=== PATIENT | female | born 1940 | race Caucasian/White ===

== ENCOUNTER 2020-07-12 22:17 | Inpatient (IN) | payer OTHER ==
[~2020-07-12] VITALS: Ht 147.3 cm; Wt 44.9 kg
[2020-07-12 22:18] VITALS: BP 153/59
[2020-07-12 23:24] LABS: HEMATOCRIT 31.6 % (37.0-47.0); HEMOGLOBIN 10.5 gm/dL (12.0-15.0); MCH 27.9 pg (26.0-34.0); MCHC 33.1 g/dL (28.0-37.0); MCV 84.2 fL (80.0-100.0); RBC 3.76 mil/uL (4.20-5.00); RDW 13.5 % (10.5-14.5); WBC 4.4 thou/uL (4.0-11.0)
[2020-07-12 23:42] LABS: CALCIUM 9.5 mg/dL (8.5-10.1); CREATININE 1.1 mg/dL (0.6-1.0); POTASSIUM 3.7 mmol/L (3.5-5.1)
[2020-07-13] MEDS ORDERED: ATORVASTATIN CA20 MG PO (02:01)
[2020-07-13] MEDS ORDERED: LISINOPRIL10 MG PO (02:02)
[2020-07-13] MEDS ORDERED: CLOPIDOGREL75 MG PO (02:02)
[2020-07-13] MEDS ORDERED: BUPROPION XL300 MG PO (02:02)
[2020-07-13] MEDS ORDERED: SINGULAIR 10 MG10 M1 PO (02:02)
[2020-07-13] MEDS ORDERED: LEVOTHYROXINE50 MCG PO (02:02)
[2020-07-13] MEDS ORDERED: FOLIC ACID1 MG PO (02:02)
[2020-07-13] MEDS ORDERED: TRAZODONE HCL50 MG PO (02:03)
[2020-07-13 12:00] VITALS: BP 155/72
[2020-07-13 13:53] VITALS: BP 155/72
[2020-07-13 14:32] VITALS: BP 145/70
[2020-07-13 19:10] VITALS: BP 168/78
--- NOTE | 2020-07-13 19:44 | NUR ---
PT RECEIVED TO RM 355 FROM THE ER ALERT AND IN NO ACUTE DISTRESS. AMBULATED UNASSISTED TO THE BATHROOM AND WALKING STEADY. BLOOD SUGAR BETTER AT DINNER. PT IS VERY PARTICULAR ABOUT THE QUALITY OF FOOD IS VERY PICKING W/ HER EATING. DID TEACHING RE IMPORTANCE OF EATING WELL TO ASSIST W/ HER HEALING AND SHE STATED SHE WOULD TRY. NO COUGH BUT DOES HAVE LOW GRADE FEVER.
[2020-07-13 20:24] VITALS: BP 158/84
[2020-07-13 23:07] LABS: GLYCOHEMOGLOBIN (HGB A1C) 9.3 % (4.8-5.6)
--- NOTE | 2020-07-14 01:37 | NUR ---
ASSESSED AT START OF SHIFT. PT A&OX4 UP WITH SBA TO THE BATHROOM. DENIES PAIN. C/O FEVER AND CHILLS. TEMP 99.9. TYLENOL GIVEN. BSG CHECKED 337 HS. INSULIN PROVIDED. NIGHT SNACKS ALSO GIVEN. FALL PREC IN PLACE AND CALL LIGHT AT REACH WILL CONT TO MONITOR.
[2020-07-14 03:34] VITALS: BP 168/78
[2020-07-14 06:23] LABS: HEMATOCRIT 34.8 % (37.0-47.0); HEMOGLOBIN 11.1 gm/dL (12.0-15.0); MCH 27.1 pg (26.0-34.0); MCHC 31.9 g/dL (28.0-37.0); MCV 84.9 fL (80.0-100.0); RBC 4.1 mil/uL (4.20-5.00); RDW 13.6 % (10.5-14.5); WBC 5.2 thou/uL (4.0-11.0)
[2020-07-14 06:45] LABS: CALCIUM 9.2 mg/dL (8.5-10.1); MAGNESIUM 1.7 mg/dL (1.8-2.4); POTASSIUM 4.8 mmol/L (3.5-5.1)
[2020-07-14 07:59] VITALS: BP 162/67
[2020-07-14] MEDS ORDERED: HUMALOG100 UNIT/1 SUBQ (08:01)
[2020-07-14] MEDS ORDERED: FREESTYLE LIBR1 EAC3 MISCELL (08:53)
[2020-07-14] MEDS ORDERED: FREESTYLE LIBR1 EAC2 MISCELL (08:53)
[2020-07-14 08:57] VITALS: BP 162/67
--- NOTE | 2020-07-14 11:17 | NUR ---
PT CARE ASSUMED AT 0700. A&Ox4. ACHS WITH LOW SLIDING SCALE ON BOARD. 12 UNITS GIVEN. COVID POS. TAKES PILLS WHOLE WITH WATER. MAGNESIUM 1.7. IV PATENT WITH NO REDNESS OR EDEMA, SALINE LOCKED. IV REMOVED. DISCAHRGE INSTRUCTOINS GIVEN. WITH NO FURTHER QUESTIONS. FALL PROTOCOL IN PLACE. CALL LIGHT IN REACH. LEAVING WITH SON TO TRANSPORT BACK TO FACILITY.
== END 2020-07-14 12:23 | DRG 637 ==
LOC: ER 22:17 → EROBS 07-13 01:21 → 3W 07-13 14:33
PROVIDERS: Emergency Medicine; Nurse Practitioner Family; ADMIT Hospitalist; ATTEND Hospitalist
DX: E10.649 Type 1 diabetes mellitus with hypoglycemia without coma (principal); U07.1 COVID-19; Z88.8 Allergy status to other drugs, medicaments and biological substances; E78.5 Hyperlipidemia, unspecified; I25.10 Atherosclerotic heart disease of native coronary artery without angina pectoris; I10 Essential (primary) hypertension; E03.9 Hypothyroidism, unspecified; F32.9 Major depressive disorder, single episode, unspecified; J45.909 Unspecified asthma, uncomplicated; Z79.899 Other long term (current) drug therapy
CPT/HCPCS: 10080

== ENCOUNTER 2020-07-16 22:07 | Inpatient (IN) | payer OTHER ==
[~2020-07-16] VITALS: Ht 157.5 cm; Wt 59.0 kg
[~2020-07-16 22:07] MED LIST: ATORVASTATIN CA20 MG PO; BUPROPION XL300 MG PO; CLOPIDOGREL75 MG PO; FOLIC ACID1 MG PO; FREESTYLE LIBR1 EAC2 MISCELL; FREESTYLE LIBR1 EAC3 MISCELL; HUMALOG100 UNIT/1 SUBQ; LEVOTHYROXINE50 MCG PO; LISINOPRIL10 MG PO; SINGULAIR 10 MG10 M1 PO; TRAZODONE HCL50 MG PO
[2020-07-16 22:27] VITALS: BP 111/42
[2020-07-16 22:51] LABS: BASOPHILS 0.1 % (0.0-2.0); HEMATOCRIT 34.4 % (37.0-47.0); HEMOGLOBIN 10.8 gm/dL (12.0-15.0); LYMPHOCYTES 16.2 % (24.0-44.0); MCH 27.3 pg (26.0-34.0); MCHC 31.5 g/dL (28.0-37.0); MCV 86.6 fL (80.0-100.0); MONOCYTES 9.5 % (1.0-8.0); POLYS 74.2 % (36.0-66.0); RBC 3.97 mil/uL (4.20-5.00); RDW 14.1 % (10.5-14.5); WBC 9.4 thou/uL (4.0-11.0)
[2020-07-16 22:52] LABS: PLATELET COUNT 326 thou/uL (150-400)
[2020-07-16 22:56] LABS: CALCIUM 10.5 mg/dL (8.5-10.1); POTASSIUM 5.6 mmol/L (3.5-5.1)
[2020-07-16 22:58] LABS: CREATININE 4.9 mg/dL (0.6-1.0)
[2020-07-16 23:50] LABS: BE(vivo) -19.3 mmol/L (-2 to +3); PO2 92.6 mmHg (80.0-100.0); sO2 95.4 % (92.0-98.0)
[2020-07-16 23:51] LABS: PCO2 19.1 mmHg (35.0-45.0); pH 7.184 (7.360-7.450)
[2020-07-17] VITALS (28 sets, daily range): BP systolic 78–143; BP diastolic 34–92
--- NOTE | 2020-07-17 02:00 | NUR ---
80 Y/O PT ADMITTED TO ICU FROM ER WITH DX OF DKA DOREEN AWAKE AND ALERT COOPERATIVE. LUNGS CLEAR. ACCUCHECK 389 INSULIN GTT STARTED AT 2 UNITS/HR I/2 NS AT 250 CC/HR SINUS RHYTHM. DENIES DISCOMFORT. ONLY REQUEST IS WATER AND PT IS NPO. WILL CONT TO MONITOR
[2020-07-17 04:35] LABS: ALBUMIN 2.7 g/dL (3.4-5.0); CALCIUM 9.7 mg/dL (8.5-10.1); MAGNESIUM 2.3 mg/dL (1.8-2.4); PHOSPHORUS 4.9 mg/dL (2.6-4.7); POTASSIUM 4.8 mmol/L (3.5-5.1)
--- NOTE | 2020-07-17 06:30 | NUR ---
PT RESTING QUIETLY. ONLY REQUEST IS ICE WATER. AFTER SEVERAL ATTEMPTS SIDHU CATH PLACED. 700 CC UO THIS SHIFT. ACCUCHECK 152 INSULIN GTT AT 1 UNIT. VSS REMAINS IN SINUS RHYTHM. PROGRESSING TOWARD GOALS
--- NOTE | 2020-07-17 07:18 | EKG ---
[address] [place] [place] [address] ELECTROCARDIOGRAM REPORT Name: MARIAJOSE RAMOS Room #: 243-P ADM IN M.R.#: [id number] Admission: 07/16/20 Attend Phys: Ted King Discharge: Date of : 44 Report #: [id number] [facility] ED Test Date: 2020-07-16 Test Time: 22:19:22 Pat Name: MARIAJOSE RAMOS Department: Room: 243 Gender: F Guest Service Representative: [email or web address] : 1940 Requested By: Larry Wisdom Order Number: [id number] MD: Severino Hernandez Measurements Intervals [place] Rate: 83 P: 82 DE: 142 QRS: -29 QRSD: 102 T: 72 QT: 388 QTc: 456 Interpretive Statements Sinus rhythm Borderline left axis deviation No previous ECG available for comparison Electronically Signed On 07-17-2020 7:17:52 AUTOBODY TECHNICIAN by Severino Hernandez [email or web address] <ELECTRONICALLY SIGNED> By: Severino Hernandez MD, [facility] 07/17/20 0717 2219 2219 Severino Hernandez MD, FACC /EPI
[2020-07-17 10:10] LABS: ALBUMIN 2.8 g/dL (3.4-5.0); CALCIUM 9.6 mg/dL (8.5-10.1); CREATININE 3.5 mg/dL (0.6-1.0); MAGNESIUM 2.2 mg/dL (1.8-2.4); PHOSPHORUS 3.9 mg/dL (2.5-4.9); POTASSIUM 5.1 mmol/L (3.5-5.1)
[2020-07-17 12:12] LABS: ALBUMIN 2.5 g/dL (3.4-5.0); MAGNESIUM 2.1 mg/dL (1.8-2.4); PHOSPHORUS 2.8 mg/dL (2.5-4.9); POTASSIUM 3.6 mmol/L (3.5-5.1)
[2020-07-17] MEDS ORDERED: LANTUS SUBQ (13:47)
[2020-07-17] MEDS ORDERED: HUMALOG100 UNIT/1 SUBQ (13:47)
[2020-07-17] MEDS ORDERED: SINGULAIR 10 MG10 M1 PO (14:17)
[2020-07-17] MEDS ORDERED: MAGNESIUM400 M1 PO (14:17)
[2020-07-17] MEDS ORDERED: FISH OIL 1,001000 M3 PO (14:18)
[2020-07-17] MEDS ORDERED: REVIA 50 MG TAB50 M1 PO (14:18)
[2020-07-17] MEDS ORDERED: SIMBRINZA 1%-0.28 ML OPHTHALMIC (14:20)
[2020-07-17] MEDS ORDERED: SIMBRINZA 1%-0.28 ML OTIC (14:20)
[2020-07-17] MEDS ORDERED: VITAMIN D21250 MC1 PO (14:22)
[2020-07-17] MEDS ORDERED: TYLENOL325 M1 PO (14:23)
[2020-07-17] MEDS ORDERED: FOLIC ACID1 MG PO (14:23)
[2020-07-17] MEDS ORDERED: LUMIGAN2.5 M1 OPHTHALMIC (14:24)
[2020-07-17 16:22] LABS: ALBUMIN 2.6 g/dL (3.4-5.0); CALCIUM 9.4 mg/dL (8.5-10.1); CREATININE 2.6 mg/dL (0.6-1.0); MAGNESIUM 2.2 mg/dL (1.8-2.4); PHOSPHORUS 2.8 mg/dL (2.6-4.7)
[2020-07-17 16:28] LABS: POTASSIUM 4.9 mmol/L (3.5-5.1)
--- NOTE | 2020-07-17 19:01 | NUR ---
patient progressing towards plan of care. insulin gtt off at 1430 today. diet initiated. spoke with son Marky (DPOA) and gave updates on patient status.
--- NOTE | 2020-07-17 21:30 | NUR ---
ASSUMED CARE OF PT. AWAKE AND ALERT. BLOOD SUGAR 59 1/2 AMP D50 GIVEN PER STANDING ORDERS. UO VIA SIDHU ADEQ. SINUS RHYTHM. DENIES DISCOMFORT POOR APPITITE. VSS WILL CONT TO MOPNITOR. PROGRESSING TOWARD GOALS
--- NOTE | 2020-07-17 21:52 | NUR ---
ENHANCED ISOLATION PRECAUTIONS SHERWIN'Elise.
--- NOTE | 2020-07-17 22:00 | NUR ---
COVID 19 ISOLATION CLEARED BY KELSY NEWBY RN PT TAKEN OUT OF ISOLATION. WILL CONBT TO MONITOR.
--- NOTE | 2020-07-17 23:15 | NUR ---
PT NOW A MED SURG TELE OVERFLOW. TX VIA BED TO CCU ROOM 201 WITH RN
--- NOTE | 2020-07-18 01:41 | NUR ---
2310: RECIEVED PATIENT FROM ICU PER BED. ORIENTED TO ROOM AND IVF RESTARTED. 2335: RECIEVED REPORT FROM PASSENGER TRAIN BRAKER. 0130: PATIENT SLEEPING WITHOUT PRESENT COMPLAINTS.
[2020-07-18 04:45] VITALS: BP 156/62
[2020-07-18 05:38] LABS: ABSOLUTE NEUTROPHILS 4.8 thou/uL (1.4-8.2); BASOPHILS 0.1 % (0.0-2.0); EOSINOPHILS 0.3 % (0.0-3.0); HEMOGLOBIN 9.5 gm/dL (12.0-15.0); LYMPHOCYTES 21.3 % (24.0-44.0); MCH 27.6 pg (26.0-34.0); MCHC 32.8 g/dL (28.0-37.0); MCV 84.1 fL (80.0-100.0); PLATELET COUNT 275 thou/uL (150-400); POLYS 71.3 % (36.0-66.0); RBC 3.45 mil/uL (4.20-5.00); RDW 13.6 % (10.5-14.5); WBC 6.7 thou/uL (4.0-11.0)
[2020-07-18 05:53] LABS: ALBUMIN 2.3 g/dL (3.4-5.0); CALCIUM 9.2 mg/dL (8.5-10.1); TOTAL BILIRUBIN 0.3 mg/dL (0.2-1.0); TOTAL PROTEIN 5.4 g/dL (6.4-8.2)
[2020-07-18 05:58] LABS: CREATININE 1.5 mg/dL (0.6-1.0)
[2020-07-18 07:30] VITALS: BP 154/66
[2020-07-18 12:00] VITALS: BP 153/69
--- NOTE | 2020-07-18 15:20 | NUR ---
PT IS AOX3, FORGETFUL AT TIMES. PT UP TO CHAIR, VSS, TOLERATING DIET WITHOUT N/V. PT WALKED IN THE [place] WITH PHYSICAL THERAPY TODAY. PT CALLS APPROPRIATELY. CALL LIGHT IN REACH, WILL CONTINUE TO MONITOR.
[2020-07-18 15:40] VITALS: BP 144/66
[2020-07-18 20:10] VITALS: BP 157/86
[2020-07-19 05:17] LABS: CALCIUM 10.1 mg/dL (8.5-10.1); CREATININE 0.8 mg/dL (0.6-1.0); POTASSIUM 3.5 mmol/L (3.5-5.1)
[2020-07-19 05:22] LABS: HEMATOCRIT 30.9 % (37.0-47.0); HEMOGLOBIN 10.2 gm/dL (12.0-15.0); MCH 27.3 pg (26.0-34.0); MCHC 32.9 g/dL (28.0-37.0); MCV 83.1 fL (80.0-100.0); RBC 3.72 mil/uL (4.20-5.00); RDW 13.5 % (10.5-14.5)
--- NOTE | 2020-07-19 05:27 | NUR ---
PATIENTS CARE WAS ASSUMED AT SHIFT CHANGE. PATIENT WAS ASSESSED AND MEDS WERE PASSED. THIS IS A MED SURG PATIENT. NO TELE MONITORING AT THIS TIME. PATIENT IS PLEASENT AND FOLLOWS DIRECTIONS. CALLS WHEN NEEDED. HER IV INFELTRATED THIS SHIFT WILL RESTART IN THE MORNING.
[2020-07-19 09:06] VITALS: BP 174/91
[2020-07-19 10:47] VITALS: BP 164/88
[2020-07-19 11:36] VITALS: BP 174/91
[2020-07-19] MEDS ORDERED: HUMALOG100 UNIT/1 SUBQ (11:38)
--- NOTE | 2020-07-19 13:54 | NUR ---
PT IS FROM [facility] DISCHARGING TODAY BACK TO FACILITY FAXED DC ORDERS/SUMMARY RECEIVED CONFIRMATION. FACILITY DOES NOT HAVE TRANSPORT SO VAN ARRANGED WITH [facility] FOR [phone]. FACILITY NOTIFIED OF DC AND TIME OF TRANSPORT. UNIT NOTIFIED AND CHART COPY PER US. RN TO CALL REPORT TO [phone].
--- NOTE | 2020-07-19 16:05 | NUR ---
Met with patient who resides at [facility]. She has a walker as needed. She tested positive for COVID at facility. Plan return to [place] today. Sp with son alerted of discharge today. he is in agreement. DC liaison planner to arrange.
--- NOTE | 2020-07-19 17:00 | NUR ---
ASSUMED CARE OF PT AT SHIFT CHANGE. ASSESSMENTS CHARTED. MEDS GIVEN PER SEP. PT A&OX4, FORGETFUL. NO C/O PAIN OR DISTRESS. PT WAS APPROPRIATE THROUGHOUT SHIFT. DISCHARGE ORDERS AND INSTRUCTIONS COMPLETE. TRANSPORTATION TO FACILITY PROVIDED BY [facility]. LANEY FIORE
== END 2020-07-19 16:45 | DRG 177 ==
LOC: ER 22:07 → EROBS 23:40 → ICU 23:40 → 2N 23:40 → ICU 07-17 01:26 → 2N 07-17 23:12
PROVIDERS: Emergency Medicine; ADMIT Hospitalist; ATTEND Hospitalist
DX: U07.1 COVID-19 (principal); E10.10 Type 1 diabetes mellitus with ketoacidosis without coma; E43 Unspecified severe protein-calorie malnutrition; N17.9 Acute kidney failure, unspecified; E78.5 Hyperlipidemia, unspecified; E55.9 Vitamin D deficiency, unspecified; N18.30 Chronic kidney disease, stage 3 unspecified; D64.9 Anemia, unspecified; I25.10 Atherosclerotic heart disease of native coronary artery without angina pectoris; E10.22 Type 1 diabetes mellitus with diabetic chronic kidney disease; E03.9 Hypothyroidism, unspecified; I12.9 Hypertensive chronic kidney disease with stage 1 through stage 4 chronic kidney disease, or unspecified chronic kidney disease; F32.9 Major depressive disorder, single episode, unspecified; J45.909 Unspecified asthma, uncomplicated; I10 Essential (primary) hypertension; Z88.8 Allergy status to other drugs, medicaments and biological substances; Z91.14 Patient's other noncompliance with medication regimen; Z68.23 Body mass index [BMI] 23.0-23.9, adult; Z86.19 Personal history of other infectious and parasitic diseases
CPT/HCPCS: 10081

== ENCOUNTER 2020-07-23 09:05 | Inpatient (IN) | payer OTHER ==
[~2020-07-23] VITALS: Ht 157.5 cm; Wt 49.5 kg
[~2020-07-23 09:05] MED LIST changes: +FISH OIL 1,001000 M3 PO; +LANTUS SUBQ; +LUMIGAN2.5 M1 OPHTHALMIC; +MAGNESIUM400 M1 PO; +REVIA 50 MG TAB50 M1 PO; +SIMBRINZA 1%-0.28 ML OPHTHALMIC; +SIMBRINZA 1%-0.28 ML OTIC; +TYLENOL325 M1 PO; +VITAMIN D21250 MC1 PO
[2020-07-23 09:06] VITALS: BP 120/37
[2020-07-23 09:36] LABS: HEMATOCRIT 31.5 % (37.0-47.0); HEMOGLOBIN 9.7 gm/dL (12.0-15.0); MCHC 30.7 g/dL (28.0-37.0); MCV 87.9 fL (80.0-100.0); PLATELET COUNT 347 thou/uL (150-400); RBC 3.58 mil/uL (4.20-5.00); RDW 14.6 % (10.5-14.5); WBC 13.9 thou/uL (4.0-11.0)
[2020-07-23 09:58] LABS: ALBUMIN 2.7 g/dL (3.4-5.0); BUN 48 mg/dL (7-18); CALCIUM 10.1 mg/dL (8.5-10.1); CHLORIDE 93 mmol/L (98-107); CREATININE 3.1 mg/dL (0.6-1.0); DIRECT BILIRUBIN 0.1 mg/dL (<0.1-0.2); LIPASE 56 U/L (73-393); MAGNESIUM 2.2 mg/dL (1.8-2.4); PHOSPHORUS 5.3 mg/dL (2.6-4.7); POTASSIUM 5.3 mmol/L (3.5-5.1); SGOT 16 U/L (15-37); SGPT 16 U/L (14-59); SODIUM 129 mmol/L (136-145); TOTAL BILIRUBIN 0.6 mg/dL (0.2-1.0); TOTAL PROTEIN 6.2 g/dL (6.4-8.2); TROPONIN-I <0.06 ng/mL (<0.06)
[2020-07-23 10:00] LABS: ANION GAP 28 mmol/L (7-16)
[2020-07-23 10:05] LABS: CO2 8 mmol/L (21-32)
[2020-07-23 10:06] LABS: GLUCOSE 717 mg/dL (74-106)
[2020-07-23 10:07] LABS: BE(vivo) -19.9 mmol/L (-2 to +3); HCO3 5.5 mmol/L (22.0-26.0); PCO2 13.7 mmHg (35.0-45.0); PO2 105.5 mmHg (80.0-100.0); pH 7.223 (7.360-7.450); sO2 97.1 % (92.0-98.0)
[2020-07-23 10:36] LABS: ABSOLUTE NEUTROPHILS 12.5 thou/uL (1.4-8.2); ANISOCYTOSIS 1+; METAMYELOCYTES 1 %
[2020-07-23] MEDS ORDERED: MAGNESIUM OXID400 M1 PO (10:37)
--- NOTE | 2020-07-23 10:38 | EKG ---
[address] [place] [address] ELECTROCARDIOGRAM REPORT Name: MARIAJOSE RAMOS Room #: [facility] M.R.#: [id number] Admission: Attend Phys: Discharge: Date of : 42 Report #: [id number] [facility] ED Test Date: 2020-07-23 Test Time: 10:06:06 Pat Name: MARIAJOSE RAMOS Department: Room: Gender: F Insurance Agent: JOSELINE : 1940 Requested By: Kevin Us Order Number: [id number] MD: Adalberto Saavedra Measurements Intervals [place] Rate: 108 P: 74 SC: 148 QRS: -26 QRSD: 96 T: 89 QT: 351 QTc: 471 Interpretive Statements Sinus tachycardia Borderline left axis deviation Anteroseptal infarct, age indeterminate Baseline wander in lead(s) V1 Compared to ECG 07/16/2020 22:19:22 Electronically Signed On 07-23-2020 10:38:28 FUEL VERIFICATION TECHNICIAN by Adalberto Saavedra [email or web address] <ELECTRONICALLY SIGNED> By: Adalberto Saavedra MD 07/23/20 1038 1006 1006 Adalberto Saavedra MD /IRIS
[2020-07-23 11:20] LABS: URINE BILIRUBIN NEGATIVE (Negative); URINE BLOOD NEGATIVE (Negative); URINE CLARITY CLEAR; URINE COLOR YELLOW; URINE GLUCOSE-RANDOM* 3+ (Negative); URINE KETONES 2+ (Negative); URINE LEUKOCYTES NEGATIVE (Negative); URINE NITRITE NEGATIVE (Negative); URINE PROTEIN (DIPSTICK) NEGATIVE (Negative); URINE SPECIFIC GRAVITY 1.015 (1.005-1.035); URINE UROBILINOGEN 0.2 E.U./dl (0.2-1.0)
[2020-07-23 14:21] LABS: ALBUMIN 2.2 g/dL (3.4-5.0); CALCIUM 9.5 mg/dL (8.5-10.1); CREATININE 3.2 mg/dL (0.6-1.0); POTASSIUM 4.6 mmol/L (3.5-5.1)
[2020-07-23 18:46] LABS: CREATININE 2.6 mg/dL (0.6-1.0)
[2020-07-23 18:48] LABS: POTASSIUM 5.6 mmol/L (3.5-5.1)
--- NOTE | 2020-07-23 20:29 | NUR ---
INSULIN DRIP REDUCED TO 1.45UNITS/HR PER DKA PROTOCOL
[2020-07-23 22:22] LABS: ALBUMIN 1.8 g/dL (3.4-5.0); CALCIUM 7.7 mg/dL (8.5-10.1); CREATININE 2.1 mg/dL (0.6-1.0); PHOSPHORUS 2.5 mg/dL (2.5-4.9)
[2020-07-23 22:23] LABS: POTASSIUM 4.6 mmol/L (3.5-5.1)
--- NOTE | 2020-07-24 03:10 | NUR ---
talked with luis, notified her of pt blood sugar at 112 and normal anion gap. per luis guaman, ok to turn insulin drip to half and reduce rate of D51/2 NS to 75. check blood sugar every 2 hours x 2
[2020-07-24 05:51] LABS: ALBUMIN 2.1 g/dL (3.4-5.0); CALCIUM 8.2 mg/dL (8.5-10.1); PHOSPHORUS 2.5 mg/dL (2.5-4.9); POTASSIUM 4.2 mmol/L (3.5-5.1)
[2020-07-24 05:55] LABS: HEMATOCRIT 26.9 % (37.0-47.0); HEMOGLOBIN 8.7 gm/dL (12.0-15.0); MCH 27.5 pg (26.0-34.0); MCHC 32.5 g/dL (28.0-37.0); MCV 84.5 fL (80.0-100.0); RBC 3.18 mil/uL (4.20-5.00); RDW 13.8 % (10.5-14.5); WBC 10.8 thou/uL (4.0-11.0)
--- NOTE | 2020-07-24 06:15 | NUR ---
TW ALICIA CUNNINGHAM NP, VERIFIED LAST BLOOD SUGAR, PER ALIRIO VARGAS TO TURN OFF D51/2NS.
[2020-07-24 07:55] VITALS: BP 138/51
--- NOTE | 2020-07-24 10:47 | NUR ---
OK TO REMOVE FROM PRECAUTIONS PER KELSY BRODERICK
[2020-07-24 15:35] VITALS: BP 138/51
[2020-07-24 16:28] VITALS: BP 156/61
--- NOTE | 2020-07-24 16:48 | NUR ---
The patient resides at [facility] and was discharged on 07-19-2020. Note patient was COVID + at that time. 80-year-old female coming from an assisted living facility with the nursing staff noted that she was kind of increasing altered today after sustaining a facial injury while walking into a door frame. They also note that she has been having issues with hypoglycemia where her sugars been reading high for more than several days and it came down to 82 with some doses of insulin, they also noted that she had foul-smelling urine of treated UTI. The patient admits she is somewhat confused does not know why she is here has no other complaint of chest pain, abdominal pain, nausea, vomiting, diarrhea does remember the incident of the fall this morning when she said she had a mechanical trip and fall into the door jam of her room. Patient has been admitted to a hospitalist for: DKA, IDDM, DOREEN, UTI, Hypothyroidism, HTN, HLD, Medical non-compliance and Hx of COVID -19 infection. Of note PCR COVID remains positive. Patients son Marky Tuttle is listed as next of kin at [phone] and left a voicemail.
--- NOTE | 2020-07-24 17:04 | NUR ---
CALLED TO NOTIFY DR. PEREZ OF PT BG READING OF 455. ORDERED TO LEAVE INSULIN GTT AT SAME RATE OF 5.9 UNIT/HR. RECEIVED ORDERS TO START D5NS @ 100ML/HR WHEN PT REACHES BG-250
[2020-07-24 19:48] VITALS: BP 135/45
[2020-07-24 20:16] LABS: ALBUMIN 2.2 g/dL (3.4-5.0); CALCIUM 9.2 mg/dL (8.5-10.1); CREATININE 1.9 mg/dL (0.6-1.0); MAGNESIUM 1.9 mg/dL (1.8-2.4); TOTAL BILIRUBIN 0.3 mg/dL (0.2-1.0)
[2020-07-24 20:22] LABS: POTASSIUM 5.2 mmol/L (3.5-5.1)
--- NOTE | 2020-07-24 23:56 | NUR ---
Spoke to Marky (son) and gave him an update on her status and condition
[2020-07-24 23:58] VITALS: BP 115/47
[2020-07-25] VITALS (7 sets, daily range): BP systolic 144–158; BP diastolic 59–73
--- NOTE | 2020-07-25 01:12 | NUR ---
Pt's BS 61. Insulin drip stopped. D5 NS still running.
[2020-07-25 01:45] LABS: ABSOLUTE NEUTROPHILS 5.4 thou/uL (1.4-8.2); BASOPHILS 0.5 % (0.0-2.0); EOSINOPHILS 0.1 % (0.0-3.0); HEMATOCRIT 27.3 % (37.0-47.0); HEMOGLOBIN 8.9 gm/dL (12.0-15.0); MCH 27.2 pg (26.0-34.0); MCHC 32.4 g/dL (28.0-37.0); MCV 84.1 fL (80.0-100.0); MONOCYTES 14.6 % (1.0-8.0); PLATELET COUNT 306 thou/uL (150-400); POLYS 61.8 % (36.0-66.0); RBC 3.25 mil/uL (4.20-5.00); RDW 14.3 % (10.5-14.5); WBC 8.7 thou/uL (4.0-11.0)
[2020-07-25 02:40] LABS: CALCIUM 8.8 mg/dL (8.5-10.1); CREATININE 1.5 mg/dL (0.6-1.0); TOTAL BILIRUBIN 0.2 mg/dL (0.2-1.0)
[2020-07-25 02:56] LABS: POTASSIUM 3.6 mmol/L (3.5-5.1)
[2020-07-25 06:54] LABS: MAGNESIUM 2.1 mg/dL (1.8-2.4); PHOSPHORUS 1.9 mg/dL (2.5-4.9)
--- NOTE | 2020-07-25 09:48 | HC ---
[facility] [place] [address] CONSULTATION Name: MARIAJOSE RAMOS Room #: 170-15 ADM IN M.R.#: [id number] Admission: 07/23/20 Attend Phys: Mansoor Bañuelos MD Discharge: Date of : 42 Report #: [id number] THIS REPORT FOR: cc: Lizzy Stevens MD, Amir R. MD Al-Mubaslat, Ahmad MD ~ DATE OF SERVICE: 07/24/2020 ENDOCRINE CONSULTATION NOTE CONSULTING PHYSICIAN: Dr. Bañuelos. REASON FOR CONSULTATION: Uncontrolled type 2 diabetes mellitus. HISTORY OF PRESENT ILLNESS: This is a 80-year-old female patient whose medical background is significant for multiple medical issues including poorly controlled insulin-dependent diabetes mellitus, renal insufficiency, CAD, hypothyroidism, depression. The patient has had multiple hospital admissions in the past due to the issue of severe hyperglycemia and other difficulties pertaining to diabetes mellitus. The patient presented from her assisted living facility accompanied by staff, who indicated that she has had wide glycemic fluctuations alternating between severe hyperglycemia and steep drops to as low as 82 with intermittent dosing of insulin. Also, there were concerns that she might be dealing with UTI. It appears that the patient has not taken insulin in some time prior to presentation. When she presented, the patient had blood glucose in excess of 700 mg, which led to the initiation of IV insulin therapy that went on for about 12 hours and was stopped at about 3:00 a.m. earlier today. The patient was rather lethargic when I interviewed her today and was unable to give details outlining the events surrounding the last few days. However, her records show that she has been treated with Humalog insulin at about 40 units with meals as well as with Lantus insulin 10 units at bedtime. She was unable to shed more light on the specifics of her blood glucose pattern over the past few days. Also, the patient is known to have hypothyroidism and is maintained on levothyroxine 50 mcg daily. She is hyperlipidemic and is maintained on atorvastatin 20 mg daily. REVIEW OF SYSTEMS: CONSTITUTIONAL: Fatigue, tiredness, but no fever, chills or body weight changes. HEENT: Negative for sore throat, sinus pain or ear drainage. PULMONARY: Negative for shortness of breath, cough or hemoptysis. [address] [address] CONSULTATION Name: MARIAJOSE RAMOS Room #: 17015 ADM IN M.R.#: [id number] Admission: 07/23/20 Attend Phys: Mansoor Bañuelos MD Discharge: Date of : 42 Report #: [id number] CARDIAC: Negative for chest pain, palpitations, syncope or presyncope. GASTROINTESTINAL: Noted for intermittent issues with abdominal discomfort, nausea, but no vomiting. NEUROLOGY: Noted for behavioral changes, confusion, but not seizure activity. Otherwise, review of systems noncontributory other than those mentioned in HPI. PAST MEDICAL HISTORY: 1. Type 1 diabetes mellitus. 2. Renal insufficiency. 3. Hyperlipidemia. 4. Coronary artery disease. 5. Hypertension. 6. Hypothyroidism. 7. Depression. 8. Asthma. 9. History of COVID-19 pneumonia. 10. Glaucoma. OUTPATIENT MEDICATIONS: Include Humalog insulin 4 units t.i.d. a.c., Lantus insulin 10 units at bedtime, magnesium oxide 400 mg daily, atorvastatin 20 mg daily, bupropion XL 300 mg daily, Plavix 75 mg daily, lisinopril 10 mg daily, levothyroxine 50 mcg daily, trazodone 50 mg at bedtime, Singulair 10 mg at bedtime, ReVia 50 mg daily, Lumigan ophthalmic drops. ALLERGIES: OMNICEF AND PROPRANOLOL. FAMILY HISTORY: Noncontributory. SOCIAL HISTORY: The patient has not used tobacco in the past, but she had issues with heavy alcohol dependence in the past. She could not confirm whether or not this issue is active at this point. PHYSICAL EXAMINATION: GENERAL: female patient who appears confused, restless, but not in pain. She appears lethargic. VITAL SIGNS: Blood pressure is 138/51 mmHg, heart rate is 111 beats per minute, respirations 20 per minute, temperature 36.7 degrees Celsius. CONSTITUTIONAL: The patient is lying supine in bed. She was attempting to get out of bed. When I saw her, she did not seem to be in pain or distress. HEENT: Anicteric sclerae. Intact extraocular motions. NECK: Supple, without JVD or thyromegaly. CHEST: Noted for moderate air entry bilaterally with coarse breath sounds, scattered rales, without wheezes or crackles. HEART: Regular rate and rhythm without murmurs or gallops. ABDOMEN: Soft, lax. No guarding. Active bowel sounds. [facility] [address] [place] [address] CONSULTATION Name: MARIAJOSE RAMOS Room #: 170-15 ADM IN M.R.#: [id number] Admission: 07/23/20 Attend Phys: Mansoor Bañuelos MD Discharge: Date of : 42 Report #: [id number] EXTREMITIES: Lower extremity exam is negative for ankle edema, skin breaks or ulcerations. NEUROLOGIC: She is confused, unable to cooperate with neurological examination. She answers some of my questions, but seems disoriented. PSYCHIATRY: Awake, but lethargic and disoriented. LABORATORY RESULTS: On arrival, the patient's blood glucose was 717 mg/dL and has come down progressively to as low as 112 mg/dL, most recently was at 423 mg/dL. Sodium 159, potassium 4.2, chloride 105, CO2 of 17, anion gap 17. This was 28 on arrival. BUN 34, creatinine 2.0, AST 16, lipase 56, total bilirubin 0.6, direct bilirubin 0.1, calcium 8.2, phosphorus 2.5, magnesium 2.2, alkaline phosphatase 87, ALT 16, total protein 6.2, albumin 2.1, EGFR 24. Lactic acid 1.1. White blood count 10.8, hemoglobin 8.7, hematocrit 26.9, platelets 332. TSH 1.386. Hemoglobin A1c 9.3%. ASSESSMENT AND PLAN: 1. Diabetic ketoacidosis. The patient presented under conditions of diabetic ketoacidosis judging by her metabolic parameters. She was initiated on IV insulin therapy, but this was stopped about 12 hours into it. The patient had been off of IV insulin therapy for several hours by the time that I have seen her. While the patient's anion gap has improved significantly since using IV insulin, it has not fully normalized yet. Given the cessation of IV insulin therapy, I elected to initiate therapy immediately with long-acting insulin in the form of Lantus insulin 8 units daily as well as providing coverage with low intensity Humalog supplemental scale. However, if she continues to have difficulties with severe hyperglycemia and/or if her anion gap anomalies persist, I would have a low threshold to resume IV insulin therapy. Maintain aggressive blood glucose monitoring. 2. Type 1 diabetes mellitus. The patient has been known to deal with brittle type 1 diabetes mellitus with high insulin sensitivity and a propensity for severe hypoglycemia including in response to minute changes in insulin dosages. Alternatively, the patient has also dealt with a fair amount of severe hyperglycemia and has tended to have uncontrolled hemoglobin A1c values for the most part over the past several months. Given that knowledge, I will place the patient on Lantus insulin 8 units daily, knowing that her average basal daily doses are in the vicinity of 10 units daily. Since the patient is not eating at the present time, I will not yet initiate scheduled Humalog coverage for meals, but will provide coverage with low intensity Humalog scale with customization to ensure that she does not receive insulin for blood glucose under 200 mg/dL to avoid hypoglycemia. Maintain blood glucose monitoring as we are now. 3. Hypothyroidism. The patient has chronic hypothyroidism and is maintained on a stable dose of levothyroxine. Her current TSH level reflects adequate control in the present dose, [place] [address] CONSULTATION Name: MARIAJOSE RAMOS Room #: 170-15 [facility] IN M.R.#: [id number] Admission: 07/23/20 Attend Phys: Mansoor Bañuelos MD Discharge: Date of : 42 Report #: [id number] I certainly appreciate this consultation by Dr. Bañuelos. <ELECTRONICALLY SIGNED> By: Ti Rome MD 07/25/20 0948 1436 1934 Ti Rome MD /nt
--- NOTE | 2020-07-25 19:32 | NUR ---
PT CARE ASSUMED AT 1400. ASSESSMENTS CHARTED. MEDICATIONS CHARTED. LAC IV. RAC IV. SINUS RHYTHM. NAHUM. PT FROM [facility]ISTED LIVING; NONCOMPLIANT WITH MEDICATION. CONFUSED. ACHS. REPLACE FLUIDS WHEN THEY REACH 250 ML. WOULD LIKE BLOOD GLUCOSE MAINTAINED OVER 100.
[2020-07-26] VITALS (7 sets, daily range): BP systolic 145–168; BP diastolic 69–93
--- NOTE | 2020-07-26 04:10 | NUR ---
CARE ASSSUMED AT 1900. PT AO X 3. MORE AWAKE AND PLEASANT. BG 56 AT BEGINNING OF SHIFT. APPLE JUICE GIVEN, BG UP TO 106. PT DENIES CHEST DISCOMFORT, NAUSEA, VOMITING. ALL ASSESSMENTS DOCUMENTED. PT MAINTAINED ON D5, NO FURTHER COMPLAINTS. WILL CONTINUE TO MONITOR
[2020-07-26 05:18] LABS: HEMATOCRIT 25.2 % (37.0-47.0); HEMOGLOBIN 8.2 gm/dL (12.0-15.0); MCH 27.5 pg (26.0-34.0); MCHC 32.6 g/dL (28.0-37.0); MCV 84.3 fL (80.0-100.0); RBC 2.99 mil/uL (4.20-5.00); WBC 5.4 thou/uL (4.0-11.0)
[2020-07-26 05:34] LABS: CALCIUM 8.3 mg/dL (8.5-10.1); POTASSIUM 3.7 mmol/L (3.5-5.1)
--- NOTE | 2020-07-26 11:30 | NUR ---
Assess due to pt with multiple admissions for DKA. Hx refusal insulin at facility but also very brittle. BG 56-188, endo following. Initially lost about 20-23 lb from past 6 months, however now wt stabilizing around 105 lb. Bedscale wt this am was 111 lb. Likes to drink glucerna shakes-ordered with meals. Assisted pt ordering from alternative menu for lunch. Low nutrition risk with appropriate nutrition interventions in place.
--- NOTE | 2020-07-26 13:46 | NUR ---
Case opened to follow for dc planning. Pt is from [facility]. Clinical updated faxed to their director Andrade. They indicate that the pt's initial covid +test was on 07-08-20 and she no longer in ISO. PT/OT evals in progress. Pt uses a rwalker at the facility. She is being treated for DKA and UTI. [facility] can accept her back at co and is allowing for HH visits per [facility] if needed at co. The pt's mental status is improving. Dc timeframe 1- 2days. Nursing has updated her son Marky. The pt will need transport back to [facility] at co unless Marky is able to take her. Referral sent to [facility]. Will follow.
--- NOTE | 2020-07-26 19:32 | NUR ---
PT IS ALERT AND ORIENTED, PLEASANT, BUT CONFUSED. PT/OT CONSULTED. PT WALKED AROUND UNIT WITH NO WALKER. PT UP TO CHAIR IN AM. PT HAD POOR APPETITE, AND ADDITIONAL SUPPLEMENTATION ADDED TO DIET. PT HAD SON AT BEDSIDE IN PM. PT UNDERSTANDS POC IS TO CONTROL BLOOD SUGAR. CONTINUE TO MONITOR BLOOD SUGAR. CONTINUE TO REMIND PT SHE HAS SIDHU IN PLACE FOR IMMOBILITY. PT IS RESTING COMFORTABLY. NO CONCERNS AT THIS TIME.
[2020-07-27 03:59] VITALS: BP 168/71
--- NOTE | 2020-07-27 05:22 | NUR ---
CARE ASSUMED 1900. PT ALERT AND ORIENTED. NO PAIN, CHEST DISCOMFORT REPORTED. EVENING BG 220, COVERED WITH 3 UNITS. NO OTHER EVENTS. ASSESSMENTS DOCUMENTED. PT REMAINS SR ON THE MONITOR. WILL CONTINUE TO FOLLOW POC.
[2020-07-27 07:20] VITALS: BP 171/76
[2020-07-27 11:45] VITALS: BP 153/89
--- NOTE | 2020-07-27 13:06 | NUR ---
SPOKE WITH PATIENT'S SON CATRACHO UPDATED ON PATIENTS CONDITION
--- NOTE | 2020-07-27 15:19 | NUR ---
PATIENT RESTING IN BED ALERT XS 2-3 PLEASANT AND COOPERATIVE WITH CARE. WAS UP IN BEDSIDE CHAIR FOR MEALS. GIVEN S/S AND SCEDULED INSULIN ORDERED AFTER BLOOD SUGAR CHECKS ORDERED. IV ABT ORDERED.
--- NOTE | 2020-07-27 15:24 | NUR ---
RIGHT FOOT X-RAY REPORT NO FRACTURE SUBLUXATION OR DISLOCATION IS PRESENT. PT INFORMED OF RESULTS.
[2020-07-27 15:30] VITALS: BP 145/61
--- NOTE | 2020-07-27 16:11 | NUR ---
Case discussed with the care team. Pt updated at bedside and pt's son/dpoa Marky via phone regarding recommendations for snf and possible ltc transition. The pt was not overly receptive and feels she can return to [facility] as she feels she is at her baseline. Pt's son Marky reports that he will discuss with the pt and she could benefit from snf stay and concideration of ltc enviornment with more support and medication mngt. The pt luba refusing her insulin. She does acknowledge having a poor po intake but likes glucerna shakes. Both in agreement to fax referrals for snf to [facility], [facility] and [facility] . Referrals faxed and called to all three facilities. [facility] is closed to admissions til Friday as they are closing their covid rehab unit and cleaning it this weekend. [facility] both evaling an may be able to accept tomorrow pending auth. Pt out of covid ISO as she is >20 from her covid+ test and no s/s. Pt's son indicates that he does have medical DPOA if needed but hopeful pt will be in agreement. Psych eval pending. Pt does appear to have stm deficits and can not recall being seen by various staff in the am. Will follow. Possible dc to SNF tomorrow vs return to the [facility] with HH.
[2020-07-27 19:44] VITALS: BP 163/91
--- NOTE | 2020-07-28 05:06 | NUR ---
REMAINS UPSET ABOUT BEING TRANSFERED TO SKILLS UNIT AND NOT GOING HOME. REASSURED TO HAVE CM TALK WITH HER THIS AM. UP TO BATHROOM WITH STANDBY ASSIST. WORKING ON GOALS AND PLAN OF CARE FOR NOC. CONTINUE TO ASSES. DENIES COMPLAINTS OF PAIN OR SHORTNESS OF AIR.
[2020-07-28 05:24] VITALS: BP 156/81
[2020-07-28 07:41] VITALS: BP 162/71
[2020-07-28 11:27] VITALS: BP 152/68
--- NOTE | 2020-07-28 13:41 | NUR ---
Psych eval noted for invocation of DPOA for hc. Son Marky alerted and he is in agreement with SNF for skilled rehab. He has spoken with the pt this am and she is in agreement but still hopes to return to her [facility] apt in a couple of weeks. Marky is undecided and notes he will f/u with the socialworker at [facility] to determine dc plan once he has reviewed her financial situation. He would like to give her another chance to continue living at [facility]. Encouragement given to discuss with the DON at [facility] to determine how they can together handle her medication refusals when it comes to her long acting insulin to avoid repeat DKA admissions. He stated his understanding. The pt is adement that she never refuses her insulin. DC equipment planner to fax snf orders and coordinate w/c van pickup time with the [facility] liason. [facility] to f/u with the pt son to get a copy of his dpoa for hc and make arrangements for any belongings and admission paperwork. Care team updated. Chart copy in progress. Nursing to call report.
[2020-07-28] MEDS ORDERED: MIRALAX17 GM PO (15:05)
[2020-07-28] MEDS ORDERED: HUMALOG100 UNIT/1 SUBQ ×2 (15:05)
[2020-07-28] MEDS ORDERED: LANTUS100 UNIT/M SUBQ (15:05)
[2020-07-28] MEDS ORDERED: COZAAR 25 MG TA25 M2 PO (15:08)
--- NOTE | 2020-07-28 16:33 | NUR ---
PT DISCHARGING TO [facility] FAXED DC ORDERS/SUMMARY TO FACILITY SPOKE WITH EDU IN ADM SHE RECEIVED ORDERS AND ARRANGED TRANSPORT BY [facility] FOR [id number] TODAY. PT'S SON NOTIFIED OF DC AND TIME OF TRANSPORT BY [facility]. UNIT NOTIFIED AND CHART COPY PER US.
--- NOTE | 2020-07-28 18:27 | NUR ---
ASSUMED CARE OF PT AT SHIFT CHANGE. ASSESSMENTS CHARTED. MEDS GIVEN PER SEP. PT A&OX4 BUT CAN BE FORGETFUL AND A BIT CONFUSED. NO C/O PAIN. DISCHARGE ORDERS AND INSTRUCTIONS COMPLETE. IV AND TELE DC'D. PT TRANPORTED TO FACILITY VIA [facility]AN.
== END 2020-07-28 18:31 | DRG 871 ==
LOC: ER 09:05 → EROBS 11:29 → 2N 11:29 → EROBS 07-24 05:08 → 2N 07-25 13:47
PROVIDERS: Emergency Medicine; Internal Medicine; Nurse Practitioner; ADMIT Hospitalist; ATTEND Hospitalist
DX: A41.9 Sepsis, unspecified organism (principal); E10.10 Type 1 diabetes mellitus with ketoacidosis without coma; N17.0 Acute kidney failure with tubular necrosis; G93.41 Metabolic encephalopathy; N39.0 Urinary tract infection, site not specified; E78.5 Hyperlipidemia, unspecified; I25.10 Atherosclerotic heart disease of native coronary artery without angina pectoris; E03.9 Hypothyroidism, unspecified; F32.9 Major depressive disorder, single episode, unspecified; J45.909 Unspecified asthma, uncomplicated; Z86.16 Personal history of COVID-19; N18.9 Chronic kidney disease, unspecified; F39 Unspecified mood [affective] disorder; E10.22 Type 1 diabetes mellitus with diabetic chronic kidney disease; F03.90 Unspecified dementia, unspecified severity, without behavioral disturbance, psychotic disturbance, mood disturbance, and anxiety; I12.9 Hypertensive chronic kidney disease with stage 1 through stage 4 chronic kidney disease, or unspecified chronic kidney disease; Z87.01 Personal history of pneumonia (recurrent); Z88.8 Allergy status to other drugs, medicaments and biological substances; Z79.4 Long term (current) use of insulin; Z91.14 Patient's other noncompliance with medication regimen; Z79.899 Other long term (current) drug therapy; Z20.822 Contact with and (suspected) exposure to COVID-19
CPT/HCPCS: 10081

== ENCOUNTER 2020-08-11 18:40 | Emergency (ER) | payer OTHER ==
[~2020-08-11] VITALS: Ht 147.3 cm; Wt 42.2 kg
[~2020-08-11 18:40] MED LIST changes: +COZAAR 25 MG TA25 M2 PO; +LANTUS100 UNIT/M SUBQ; +MAGNESIUM OXID400 M1 PO; +MIRALAX17 GM PO
[2020-08-11 19:35] LABS: ABSOLUTE NEUTROPHILS 2.9 thou/uL (1.4-8.2); BASOPHILS 1.2 % (0.0-2.0); EOSINOPHILS 1.7 % (0.0-3.0); HEMATOCRIT 29.6 % (37.0-47.0); HEMOGLOBIN 9.4 gm/dL (12.0-15.0); LYMPHOCYTES 31.6 % (24.0-44.0); MCH 27.3 pg (26.0-34.0); MCHC 31.6 g/dL (28.0-37.0); MCV 86.4 fL (80.0-100.0); MONOCYTES 9.4 % (1.0-8.0); PLATELET COUNT 278 thou/uL (150-400); POLYS 56.1 % (36.0-66.0); RBC 3.43 mil/uL (4.20-5.00); RDW 16.1 % (10.5-14.5); WBC 5.2 thou/uL (4.0-11.0)
[2020-08-11 20:05] LABS: CALCIUM 9.5 mg/dL (8.5-10.1); CREATININE 1.5 mg/dL (0.6-1.0); POTASSIUM 3.7 mmol/L (3.5-5.1)
[2020-08-11 20:11] LABS: DIRECT BILIRUBIN 0.2 mg/dL (<0.1-0.2); TOTAL BILIRUBIN 0.7 mg/dL (0.2-1.0); TOTAL PROTEIN 6.2 g/dL (6.4-8.2)
[2020-08-11 20:17] LABS: URINE BILIRUBIN NEGATIVE (Negative); URINE BLOOD NEGATIVE (Negative); URINE CLARITY CLEAR; URINE COLOR YELLOW; URINE GLUCOSE-RANDOM* 3+ (Negative); URINE KETONES TRACE (Negative); URINE LEUKOCYTES-REFLEX NEGATIVE (Negative); URINE NITRITE-REFLEX NEGATIVE (Negative); URINE PROTEIN (DIPSTICK) NEGATIVE (Negative); URINE UROBILINOGEN 0.2 E.U./dl (0.2-1.0)
[2020-08-11 22:33] VITALS: BP 138/52
== END 2020-08-11 22:33 | disposition home or self-care (01) ==
LOC: ER 18:40
PROVIDERS: Emergency Medicine
DX: E10.65 Type 1 diabetes mellitus with hyperglycemia (principal); E78.5 Hyperlipidemia, unspecified; I25.10 Atherosclerotic heart disease of native coronary artery without angina pectoris; I10 Essential (primary) hypertension; E03.9 Hypothyroidism, unspecified; J45.909 Unspecified asthma, uncomplicated; Z88.1 Allergy status to other antibiotic agents; Z79.899 Other long term (current) drug therapy; Z79.4 Long term (current) use of insulin

== ENCOUNTER 2020-08-18 13:49 | Emergency (ER) | payer OTHER ==
[~2020-08-18] VITALS: Ht 147.3 cm; Wt 44.5 kg
[2020-08-18 14:46] LABS: URINE BILIRUBIN NEGATIVE (Negative); URINE BLOOD NEGATIVE (Negative); URINE CLARITY CLEAR; URINE COLOR YELLOW; URINE GLUCOSE-RANDOM* 3+ (Negative); URINE KETONES 1+ (Negative); URINE LEUKOCYTES-REFLEX NEGATIVE (Negative); URINE NITRITE-REFLEX NEGATIVE (Negative); URINE PROTEIN (DIPSTICK) NEGATIVE (Negative); URINE UROBILINOGEN 0.2 E.U./dl (0.2-1.0)
[2020-08-18 17:51] LABS: POTASSIUM 3.5 mmol/L (3.5-5.1)
[2020-08-18 18:07] LABS: CALCIUM 9.9 mg/dL (8.5-10.1); CREATININE 1.2 mg/dL (0.6-1.0)
[2020-08-18 18:41] VITALS: BP 131/79
== END 2020-08-18 18:41 ==
LOC: ER 13:49
PROVIDERS: Emergency Medicine
DX: E10.65 Type 1 diabetes mellitus with hyperglycemia (principal); E78.5 Hyperlipidemia, unspecified; I25.10 Atherosclerotic heart disease of native coronary artery without angina pectoris; I10 Essential (primary) hypertension; E03.9 Hypothyroidism, unspecified; J45.909 Unspecified asthma, uncomplicated; Z79.4 Long term (current) use of insulin; Z79.899 Other long term (current) drug therapy; Z88.8 Allergy status to other drugs, medicaments and biological substances